=== PATIENT | male | born 1970 | race Caucasian/White ===

== ENCOUNTER → 2017-04-04 | Outpatient (CLI) | payer BC | LOC: BHSO 16:19 | DX: F41.1 Generalized anxiety disorder (principal) ==

== ENCOUNTER → 2017-10-01 | Outpatient (CLI) | payer BC | LOC: BHSO 16:06 | DX: F41.1 Generalized anxiety disorder (principal) ==

== ENCOUNTER → 2018-03-01 | Outpatient (CLI) | payer BC | LOC: BHSO 08:00 | DX: F31.81 Bipolar II disorder (principal) | CPT/HCPCS: G0463 ==

== ENCOUNTER → 2018-07-05 | Outpatient (CLI) | payer BC | LOC: BHSO 07:56 | DX: F31.81 Bipolar II disorder (principal) | CPT/HCPCS: G0463 ==

== ENCOUNTER → 2019-01-01 | Outpatient (CLI) | payer BC | LOC: BHSO 07:56 | DX: F31.81 Bipolar II disorder (principal) | CPT/HCPCS: G0463 ==

== ENCOUNTER → 2019-04-25 | Outpatient (CLI) | payer BC | LOC: BHSO 07:54 | DX: F31.81 Bipolar II disorder (principal) | CPT/HCPCS: G0463 ==

== ENCOUNTER → 2019-06-16 | Outpatient (CLI) | payer BC | LOC: BHSO 15:54 | DX: F31.81 Bipolar II disorder (principal) ==

== ENCOUNTER → 2019-07-15 | Outpatient (CLI) | payer BC | LOC: BHSO 15:48 | DX: F31.81 Bipolar II disorder (principal) ==

== ENCOUNTER → 2019-07-25 | Outpatient (CLI) | payer BC | LOC: BHSO 07:52 | DX: F31.81 Bipolar II disorder (principal) | CPT/HCPCS: G0463 ==

== ENCOUNTER → 2019-08-15 | Outpatient (CLI) | payer BC | LOC: BHSO 15:57 | DX: F31.81 Bipolar II disorder (principal) ==

== ENCOUNTER → 2019-09-12 | Outpatient (CLI) | payer BC | LOC: BHSO 15:54 | DX: F31.81 Bipolar II disorder (principal) ==

== ENCOUNTER → 2020-07-01 | Outpatient (CLI) | payer BC | LOC: BHSO 16:02 | DX: F31.81 Bipolar II disorder (principal) | CPT/HCPCS: G0463 ==